=== PATIENT | male | born 1960 | race Caucasian/White ===

== ENCOUNTER → 2018-02-11 | Outpatient (CLI) | payer MEDICAID ==
[~2018-02-11] MED LIST: HYDR12.56 PO; LISI-363 PO; METH10TA PO; PERC5TAB12 PO
--- NOTE | 2018-02-13 08:37 | RSPPFT ---
DATE OF PROCEDURE: 02/11/18 COMMENTS: Spirometry with FVC of 3.5, FEV1 of 2.1, FEV1/FVC ratio at 60%. Room air arterial blood gases show pH of 7.40, PCO2 of 42, PO2 of 85. Slow vital capacity is 78% of predicted. TLC is 93%. Diffusion capacity at 56% of predicted. IMPRESSION: 1. Moderate airways obstruction. 2. No evidence of airways restriction. 3. Moderate reduction in diffusion capacity. 4. Adequate oxygenation and alveolar ventilation.
== END ==
LOC: HRSP 10:41
PROVIDERS: ATTEND Internal Medicine Sleep Medicine
DX: R06.89 Other abnormalities of breathing (principal)
CPT/HCPCS: 36600; 82805; 94060; 94726; 94729